=== PATIENT | male | born 2000 | race Caucasian/White ===

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

== ENCOUNTER 2019-12-02 10:34 | Day surgery (SDC) | payer OTHER ==
[~2019-12-02] VITALS: Ht 190.5 cm; Wt 85.2 kg
[2019-12-02] VITALS (7 sets, daily range): BP systolic 107–128; BP diastolic 64–89; PULSE 68–90; TEMP 97.4–97.9
--- NOTE | 2019-12-02 11:27 | NUR ---
TO RM AT 1050- CALL LIGHT IN REACH MOTHER AT BEDSIDE.
--- NOTE | 2019-12-02 14:40 | NUR ---
TO RM 6 PER CART FROM PACU. ALERT ORIENTED X 3, TALKING WITH STAFF AND FATHER. RECEIVED ICE WATER/ C/O PAIN 01/05- DENIES NEED FOR PAIN MEDICATIONS AT THIS TIME. DENIES NAUSEA MAX SET OVER INCISIONS, CLEAN DRY INTACT.
[2019-12-02] MEDS ORDERED: ULTRAM 50MG TAB50 MG PO (15:04)
--- NOTE | 2019-12-02 15:15 | NUR ---
RECEIVED SPRITE AND CRACKERS. FATHER AT BEDSIDE.
--- NOTE | 2019-12-02 16:07 | NUR ---
AMBULATED TO BATHROOM, VOIDED AND AMBULATED BACK TO . AFTER RETURNING TO - PATIENT C/O FEELING LIGHT HEADED AND NAUSEATED.
--- NOTE | 2019-12-02 16:20 | NUR ---
PATIENT STATED HE IS FEELING BETTER AND DENIES NAUSEA
--- NOTE | 2019-12-02 16:25 | NUR ---
PATIENT AND FATHER RECEIVED DISCHARGE INSTRUCTIONS AND VERBALIZED UNDERSTANDING. DISCONTINUED IV AND INT- CATHETER INTACT PATIENT GETTING DRESSED.
--- NOTE | 2019-12-02 16:30 | NUR ---
DISCHARGED PER WC BY NURSING STAFF TO PRIVATE CAR IN CARE OF MONICA HALEY.
== END 2019-12-02 16:34 | disposition home or self-care (01) ==
LOC: SDCO 10:34
DX: K40.90 Unilateral inguinal hernia, without obstruction or gangrene, not specified as recurrent (principal)
CPT/HCPCS: C1781; J0171; J0690; J1100; J1170; J1885; J2405; J2704; J3010; J7120